=== PATIENT | male | born 1965 | race Caucasian/White ===

== ENCOUNTER → 2019-12-20 | Outpatient (CLI) | payer OTHER ==
--- NOTE | 2019-12-23 12:37 | PF ---
[address] [address] PULMONARY FUNCTION REPORT Name: MERLE MILLER Room: [facility].#: [id number] Admission: 12/20/19 Attend Phys: Iftikhar Estrada MD Discharge: Date of : 67 Report #: [id number] THIS REPORT FOR: //name// CC: Iftikhar Estrada [facility] unknown DATE OF SERVICE: 12/20/2019 PULMONARY FUNCTION TEST FEV1 to FVC ratio is 74% of predicted. FEV1 is at 3.37 liters 85% of predicted. FVC is 4.55 liters, 89% of predicted. In summary, spirometry is within normal limits. There is no significant post-bronchodilator change. <ELECTRONICALLY SIGNED> By: Tylor Butts MD 12/23/19 1237 [id number] 0001Tylor Butts MD /nt
== END ==
LOC: M.PUL 12-12 10:30 → M.RAD 09:00
DX: R06.02 Shortness of breath (principal)